=== PATIENT | male | born 1945 | race Caucasian/White ===

== ENCOUNTER → 2021-01-19 10:57 | Outpatient (CLI) | payer MEDICARE, OTHER, SELFPAY ==
[2021-01-19 19:54] LABS: Alanine Aminotransferase 25 IU/L (<50); Albumin 4.3 g/dL (3.5-5.0); Albumin Globulin Ratio 1.7 (1.0-2.8); Alkaline Phosphatase 78 U/L (38-126); Aspartate Aminotransferase 42 IU/L (17-59); BUN Creatinine Ratio 28.8 (6-22); Bilirubin Total 0.9 mg/dL (0.2-1.3); Blood Urea Nitrogen 21 mg/dL (9-20); Calcium 9.5 mg/dL (8.4-10.2); Carbon Dioxide 31 mmol/L (22-32); Chloride 100 mmol/L (98-107); Cholesterol 184 mg/dL (140-199); Estimated Glomerular Filt Rate > 60.0 mL/min (>60); Globulin 2.6 g/dL (1.7-4.1); Glucose 90 mg/dL (80-110); HDL Cholesterol 64 mg/dL (40-60); HEMOLYSIS < 15 (0-50); LDL Cholesterol Calculated 102 mg/dL (<100); Potassium 4.5 mmol/L (3.4-5.1); Sodium 137 mmol/L (137-145); Total Protein 6.9 g/dL (6.3-8.2); Triglycerides 88 mg/dL (35-150)
[2021-01-19 20:24] LABS: Prostate Specific Antigen Scrn 0.492 ng/mL (0.1-4.0)
== END ==
PROVIDERS: PCP Family Medicine; Referring Provider Family Medicine; Visit Provider Family Medicine
DX: L40.50 Arthropathic psoriasis, unspecified (principal); Z12.5 Encounter for screening for malignant neoplasm of prostate; Z00.00 Encounter for general adult medical examination without abnormal findings
CPT/HCPCS: 80053; 80061; G0103

== ENCOUNTER 2021-12-09 08:30 | Emergency (ER) | payer MEDICARE, OTHER, SELFPAY ==
[2021-12-09] VITALS (7 sets, daily range): BP systolic 138–170; BP diastolic 65–73; PULSE 48–59; RESP 17–21; TEMP 36.6; O2SAT 100; BMI 22.8
--- NOTE | 2021-12-09 08:47 | DI.CT.S_ITS ---
PROCEDURE: CT ANGIO HEAD AND NECK INDICATIONS: Acute neurologic symptoms 60 hours ago TECHNIQUE: Pre-contrast 4.5 mm thick sections acquired from the foramen magnum to the vertex. After the administration of intravenous contrast, 1 mm thick sections acquired from the aortic arch through the [place]. Post-contrast 4.5 mm thick sections then re-acquired from the foramen magnum to the vertex. For radiation dose reduction, the following was used: automated exposure control, adjustment of mA and/or kV according to patient size. COMPARISON: None. FINDINGS: Image quality: Excellent. BRAIN: CSF spaces: Ventricles are normal in size and shape. Basal cisterns are patent. No extra-axial fluid collections. Brain: No midline shift. No intracranial bleeds or masses. Wylie-white matter interface appears intact. Atrophy and white matter chronic ischemic change Skull and face: Calvarium and facial bones appear intact, without suspicious lesions. Orbits appear normal. Sinuses: Sinuses and mastoids are clear. HEAD CT ANGIOGRAPHY: Anterior circulation: Intracranial internal carotid arteries are normal in size and flow. The flow within the paired anterior cerebral arteries is normal and symmetric. The flow within the middle cerebral arteries is normal and symmetric. The anterior communicating artery is seen. No aneurysms are seen. Posterior circulation: Visualized portions of the vertebral arteries demonstrate normal caliber, and join to form a normal appearing basilar artery. Flow within the posterior cerebral arteries is normal and symmetric. No aneurysms are seen. NECK CT ANGIOGRAPHY: Carotid system: The great vessels demonstrate a conventional anatomy as they arise from the aortic arch. The origins of the common carotid arteries appear patent. The common carotid arteries demonstrate normal caliber and courses. The bifurcation regions are both widely patent. The internal carotid arteries demonstrate normal calibers and courses. Mild atherosclerotic plaque in both proximal internal carotid arteries noted Posterior circulation: The origins of the vertebral arteries both appear widely patent. The more superior extracranial portions of both vertebral arteries also demonstrate normal courses and calibers. They join to form a normal appearing basilar artery. Soft tissues: Visualized neck soft tissues demonstrate no suspicious abnormalities. Bones: No suspicious bony lesions. Visualized cervical spine appears normally aligned. 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 Mild atrophy and multifocal white matter chronic ischemic change noted 2. Unremarkable CT angiogram the head and neck without significant stenosis, aneurysm or vascular malformation. 3. Degenerative disc disease and arthropathy in cervical spine Any quantitative measurements of stenosis were performed using NASCET criteria. Approved by: Cuate Marie M.D. on 12/09/2021 at 8:58
[2021-12-09 08:52] LABS: Add Manual Diff / Slide Review NO; Basophils Absolute Auto 0 /uL (0-100); Basophils Percent Auto 0.3 % (0-2); Eosinophils Absolute Auto 200 /uL (0-450); Hematocrit 39.3 % (41-53); Hemoglobin 13.3 g/dL (13.5-17.5); Lymphocytes Absolute Auto 1200 /uL (1100-4500); Lymphocytes Percent Auto 27.5 % (25-40); Mean Corpuscular HGB Conc 33.9 % (30-36); Mean Corpuscular Hemoglobin 32.1 PG (26-34); Mean Corpuscular Volume 94.7 fL (80-100); Monocytes Absolute Auto 700 /uL (0-900); Monocytes Percent Auto 15.1 % (3-14); Neutrophils Absolute Auto 2400 /uL (1500-7000); Neutrophils Percent Auto 52.1 % (50-75); Platelet Count 113 X10^3/uL (150-400); Red Blood Cell Count 4.15 X10^6/uL (4.5-5.9); Red Cell Distribution Width 14.4 % (11.6-14.8); White Blood Cell Count 4.5 X10^3/uL (4.5-11.0)
--- NOTE | 2021-12-09 08:54 | ED.GENADULT ---
HPI - General Adult General Chief complaint: Altered Mental Status Stated complaint: thinks he had a TIA Time Seen by Provider: 12/09/21 08:31 Source: patient Mode of arrival: Ambulatory History of Present Illness HPI narrative: 76-year-old gentleman with a history of ankylosing spondylitis for which he is on methotrexate 10 mg weekly and Remicade every 6 weeks presents approximately 16 hours after his event due to difficulty in getting off [facility] because of fog and ferry issues. Apparently after dinner on the he had an episode where he made an acute sobbing sound, eyes rolled up minimally responsive for approximately 30 seconds with stammering and acute dizziness. This did resolve and he has been doing fairly well since. His feels that he is having some word-finding difficulties and he does agree. Does not feel that he is having any cognitive clouding. There is no complaints of motor, sensory or visual abnormalities. His notes that he has a chronic left eye/right cheek and right side of his nose tic that she believes is Tourette's syndrome. There has been no recent fever, cough, chills, chest pain, palpitations, abdominal pain, vomiting, diarrhea, headaches. Related Data Home Medications Medication Instructions Recorded Confirmed methotrexate sodium 5 mg tablet 5 mg PO QWEEK 06/27/20 10/03/21 infliximab 100 mg intravenous IV 01/19/21 10/03/21 solution (Remicade) Previous Rx's Medication Instructions Recorded mupirocin 2 % topical ointment 1 applic topical BID #22 grams 10/03/21 hydrocortisone-acetic acid 1 %-2 % 3 drp otic (ear) QID #10 mL 10/06/21 ear drops ofloxacin 0.3 % ear drops 5 drp otic (ear) BID #5 mL 10/06/21 Allergies Allergy/AdvReac Type Severity Reaction Status Date / Time No Known Drug Allergies Allergy Verified 10/03/21 10:33 Review of Systems Review of Systems Narrative: Remainder of complete review of systems is otherwise unremarkable except for that included in the HPI. Patient History Medical History Ankylosing spondylitis Psoriatic arthritis Routine general medical examination at health care facility Screening for prostate cancer Well adult exam Social History Smoking Status: Never smoker Smoking Status: Never smoker Exam Initial Vital Signs Initial Vital Signs: Vital Signs Temperature 98 F 12/09/21 08:30 Pulse Rate 54 L 12/09/21 08:30 Respiratory Rate 18 12/09/21 08:30 Blood Pressure 170/73 H 12/09/21 08:30 Pulse Oximetry 100 12/09/21 08:30 Oxygen Delivery Method 12/09/21 08:30 General: Healthy appearing, in no acute distress. Able to give a complete and coherent history. Well-nourished well-developed HEENT: Moist mucous membranes, normal sclera with reactive pupils, left eye tic Neck: supple Respiratory: Lungs are clear to auscultation, no wheezing no rales no rhonchi. Full and symmetrical air movement Cardiac: Regular rate and rhythm no murmurs no bruits Abdomen: Soft, nontender, good bowel tones, no flank pain Skin: Warm and dry, no rashes Neurologic: Grossly neurologically intact with no obvious asymmetries or abnormalities aside from the left eye tic Extremities: No trauma, well perfused, no edema, chronic venous stasis changes Psych: Cooperative, appropriate insight and affect NIH score = 0 Course Orders Ordered: ED Orders 12/09/21 08:44 Complete Blood Count AUTO DIFF Stat Comprehensive Metabolic Panel Stat Troponin I Stat 12/09/21 08:47 CT angio head and neck Stat 12/09/21 10:10 Urine Culture Stat Urine Microscopic Stat 12/09/21 14:14 Lipid Panel Stat Vital Signs Vital signs: Vital Signs - 8 hr 12/09/21 08:30 12/09/21 08:40 12/09/21 09:00 Temperature 98 F Pulse Rate 54 L 55 L Respiratory Rate 18 17 Blood Pressure 170/73 H 138/65 Pulse Oximetry 100 100 Oxygen Delivery Method Room Air 12/09/21 09:00 12/09/21 09:30 12/09/21 10:00 Temperature Pulse Rate 59 L 48 L 48 L Respiratory Rate 17 Blood Pressure Pulse Oximetry 100 100 100 Oxygen Delivery Method 12/09/21 10:30 12/09/21 11:00 Temperature Pulse Rate 49 L 59 L Respiratory Rate 21 Blood Pressure Pulse Oximetry 100 100 Oxygen Delivery Method Medical Decision Making Lab Data Result diagrams: 12/09/21 08:44 12/09/21 08:44 Labs: Lab Results 12/09/21 12/09/21 12/09/21 Range/Units 08:44 08:44 10:10 WBC 4.5 (4.5-11.0) X10^3/uL RBC 4.15 L (4.5-5.9) X10^6/uL Hgb 13.3 L (13.5-17.5) g/dL Hct 39.3 L (41-53) % MCV 94.7 (80-100) fL MCH 32.1 (26-34) PG MCHC 33.9 (30-36) % RDW 14.4 (11.6-14.8) % Plt Count 113 L (150-400) X10^3/uL Neut % (Auto) 52.1 (50-75) % Lymph % (Auto) 27.5 (25-40) % [place] % (Auto) 15.1 H (3-14) % Eos % (Auto) 5.0 H (2-4) % Baso % (Auto) 0.3 (0-2) % Neut # (Auto) 2400 (6558-6741) /uL Lymph # (Auto) 1200 (9638-2507) /uL [place] # (Auto) 700 (0-900) /uL Eos # (Auto) 200 (0-450) /uL Baso # (Auto) 0 (0-100) /uL Sodium 138 (137-145) mmol/L Potassium 4.0 (3.4-5.1) mmol/L Chloride 103 (98-107) mmol/L Carbon Dioxide 30 (22-32) mmol/L BUN 26 H (9-20) mg/dL Creatinine 0.72 (0.66-1.25) mg/dL Estimated GFR > 60 (>60) mL/min BUN/Creatinine Ratio 36.1 H (6-22) Glucose 55 L (80-110) mg/dL Calcium 8.8 (8.4-10.2) mg/dL Total Bilirubin 0.7 (0.2-1.3) mg/dL AST 41 (17-59) IU/L ALT 27 (<50) IU/L Alkaline Phosphatase 75 (38-126) U/L Troponin I < 0.012 (0.01-0.034) ng/mL Total Protein 7.0 (6.3-8.2) g/dL Albumin 4.1 (3.5-5.0) g/dL Globulin 2.9 (1.7-4.1) g/dL Albumin/Globulin Ratio 1.4 (1.0-2.8) Urine RBC 0-1/hpf (0-5/HPF) Urine WBC 0-1/hpf (0-5/HPF) Ur Squamous Epith Cells 0-1 /hpf (0-5/HPF) Urine Bacteria None seen (None) Ur Culture Indicated? Culture not indicate Point of Care Testing Glucose POC 92 Urine Dip Bedside Urine Glucose Negative Bedside Urine Bilirubin - Negative Bedside Urine Ketone - Negative Urine Specific [place] 1.010 Bedside Urine Occult Blood + Bedside Urine pH 5.5 Bedside Urine Protein - Negative Bedside Urine Urobilinogen 0.2 Bedside Urine Nitrite - Negative Bedside Urine Leukocytes - Negative Esterase Point of care testing: Point of Care Testing Glucose POC 92 Urine Dip Bedside Urine Glucose Negative Bedside Urine Bilirubin - Negative Bedside Urine Ketone - Negative Urine Specific [place] 1.010 Bedside Urine Occult Blood + Bedside Urine pH 5.5 Bedside Urine Protein - Negative Bedside Urine Urobilinogen 0.2 Bedside Urine Nitrite - Negative Bedside Urine Leukocytes - Negative Esterase Imaging Data CTA head and neck: Radiologist's Impression: COMPARISON:? None. ? FINDINGS:? Image quality:? Excellent.? ? BRAIN:? CSF spaces:? Ventricles are normal in size and shape.? Basal cisterns are patent.? No extra-axial fluid collections.? ? Brain:? No midline shift.? No intracranial bleeds or masses.? [place]ylie-white matter interface appears intact.? Atrophy and white matter chronic ischemic change ? Skull and face:? Calvarium and facial bones appear intact, without suspicious lesions.? Orbits appear normal.? ? Sinuses:? Sinuses and mastoids are clear.? ? HEAD CT ANGIOGRAPHY:? Anterior circulation:? Intracranial internal carotid arteries are normal in size and flow.? The flow within the paired anterior cerebral arteries is normal and symmetric.? The flow within the middle cerebral arteries is normal and symmetric.? The anterior communicating artery is seen.? No aneurysms are seen.? ? Posterior circulation:? Visualized portions of the vertebral arteries demonstrate normal caliber, and join to form a normal appearing basilar artery.? Flow within the posterior cerebral arteries is normal and symmetric.? No aneurysms are seen.? ? NECK CT ANGIOGRAPHY:? Carotid system:? The great vessels demonstrate a conventional anatomy as they arise from the aortic arch.? The origins of the common carotid arteries appear patent.? The common carotid arteries demonstrate normal caliber and courses.? The bifurcation regions are both widely patent.? The internal carotid arteries demonstrate normal calibers and courses.? Mild atherosclerotic plaque in both proximal internal carotid arteries noted ? Posterior circulation:? The origins of the vertebral arteries both appear widely patent.? The more superior extracranial portions of both vertebral arteries also demonstrate normal courses and calibers.? They join to form a normal appearing basilar artery.? ? Soft tissues:? Visualized neck soft tissues demonstrate no suspicious abnormalities.? ? Bones:? No suspicious bony lesions.? Visualized cervical spine appears normally aligned.? 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 ? IMPRESSION:? ? 1. Mild atrophy and multifocal white matter chronic ischemic change noted ? 2. Unremarkable CT angiogram the head and neck without significant stenosis, aneurysm or vascular malformation. ? 3. Degenerative disc disease and arthropathy in cervical spine ? Any quantitative measurements of stenosis were performed using NASCET criteria.? Approved by: Cuate Marie M.D. on 12/09/2021 at 8:58? MDM Narrative Medical decision making narrative: 76-year-old gentleman with a history of ankylosing spondylitis lives on [facility] presents with a 30 minute episode approximately 60 hours ago that his is concerned may have been a TIA. Symptoms were minimal and have not continued. At this time, I do not have any additional explanations for the brief episode that he had a number of nights ago. It may be very possibly have been a TIA it does not appear to have been a stroke, does not appear to be a coronary event, no signs of infection. He does not currently have a primary care doctor, believes he has ?very thin blood? so aspirin is not possible for him to take, notes that his blood pressure has ?always been fine? and is ?unconcerned? about his cholesterol. His is concerned that he has Tourette's syndrome and he may well have this, with of persistent tic of the left eye and sniff/twitch of his nose. Patient is completely unaware of this recurrent tic. CTA does not suggest any acute findings. Have added a lipid panel to his medications. Patient is are anxious to leave so that they can catch there fairy back to the [facility]. His sees a geriatric primary care clinic up in [place] and would like her to see them too. I think this is a very good idea. I encouraged him to schedule an appointment for emergency room follow-up and suggested that he get both labs and CT records from this event to take to his new provider. In the meantime I do not have any additional medication suggestions given his reluctance to add additional medications as described above. At time of discharge he is baseline normal, completely neurologically intact, cognitively appropriate and safe for home discharge Discharge Plan Departure Patient Disposition: Home Clinical Impression: Brain TIA Instructions: DI for Transient Ischemic Attack Activity Restrictions/Additional Instructions: Thank you for coming in today From the description of this event a number of nights ago it may well have been a TIA. It is difficult to fully evaluat The workup in the emergency room today was very reassuring. Your head CT and the angiogram done of your head neck do not show dramatic findings, blockages or evidence of acute stroke. Additional workup for a TIA frequently includes an echocardiogram, making sure that your cholesterol and blood pressure are absolutely appropriate. With these findings, I would recommend a baby aspirin a day to reduce your risk of further TIA or stroke. I would highly recommend that you follow-up with a physician that sounds like the [facility] in [place] would be an excellent fit for you. When you are heading up for your appointment, requesting copies of the blood work and CT angiogram of your brain that was done today to given to your new doctor will be helpful in making sure that they are giving you the best medical advice they can If you find that you are getting worse or develop any new symptoms, please feel free to return to the emergency department for further evaluation. Prescriptions: No Action hydrocortisone-acetic acid 1-2 % drops 3 drp otic (ear) QID Qty: 10 0RF ofloxacin 0.3 % drops 5 drp otic (ear) BID Qty: 5 0RF Remicade 100 mg recon soln IV Rx Instructions: every 6 weeks methotrexate sodium 5 mg tablet 5 mg PO QWEEK mupirocin 2 % ointment 1 applic topical BID Qty: 22 0RF Rx Instructions: apply to to back side of external right ear lobe Referrals: Fern Fitch PA-C [Primary Care Provider] -
[2021-12-09 09:07] LABS: Alanine Aminotransferase 27 IU/L (<50); Albumin 4.1 g/dL (3.5-5.0); Albumin Globulin Ratio 1.4 (1.0-2.8); Alkaline Phosphatase 75 U/L (38-126); Aspartate Aminotransferase 41 IU/L (17-59); BUN Creatinine Ratio 36.1 (6-22); Bilirubin Total 0.7 mg/dL (0.2-1.3); Blood Urea Nitrogen 26 mg/dL (9-20); Calcium 8.8 mg/dL (8.4-10.2); Carbon Dioxide 30 mmol/L (22-32); Chloride 103 mmol/L (98-107); Estimated Glomerular Filt Rate > 60 mL/min (>60); Globulin 2.9 g/dL (1.7-4.1); Glucose 55 mg/dL (80-110); HEMOLYSIS < 15 (0-50); Sodium 138 mmol/L (137-145)
[2021-12-09 09:17] LABS: Troponin I < 0.012 ng/mL (0.01-0.034)
[2021-12-09 11:00] LABS: RBC Urine 0-1/HPF (0-5/HPF); Squamous Epithelial Cell Urine 0-1 /HPF (0-5/HPF); WBC Urine 0-1/HPF (0-5/HPF)
[2021-12-09 11:01] LABS: Bacteria Urine None Seen
[2021-12-09 14:46] LABS: Cholesterol 166 mg/dL (140-199); HDL Cholesterol 51 mg/dL (40-60); LDL Cholesterol Calculated 97 mg/dL (<100); Triglycerides 88 mg/dL (35-150)
== END 2021-12-09 14:30 | disposition home or self-care (01) ==
PROVIDERS: Emergency Provider Emergency Medicine; PCP Physician Assistant
DX: G45.9 Transient cerebral ischemic attack, unspecified (principal)
CPT/HCPCS: 36415; 70496; 70498; 80053; 80061; 81003; 81015; 82962; 84484; 85025; 87086; 99284; Q9967

== ENCOUNTER → 2022-07-31 09:32 | Outpatient (CLI) | payer MEDICARE, OTHER, SELFPAY | PROVIDERS: PCP Physician Assistant; Visit Provider Physician Assistant | DX: R30.0 Dysuria (principal) | CPT/HCPCS: 87102 ==